=== PATIENT | male | born 1980 | race Caucasian/White ===

== ENCOUNTER 2017-04-15 12:49 | Emergency (ER) | payer SELFPAY ==
[~2017-04-15] VITALS: Ht 180.3 cm; Wt 93.2 kg
[2017-04-15 12:52] VITALS: TEMP 36.4; Ht 180.3 cm; Wt 93.2 kg
[2017-04-15] MEDS ORDERED: SEIZURE MEDICATION PO (13:11)
[2017-04-15] MEDS ORDERED: IBUPROFEN 600 MG TAB PO STA (13:13)
[2017-04-15] MEDS ORDERED: OXYCODONE HCL IR 5 MG TAB (IMMEDIATE RELEASE) PO STA (13:13)
--- NOTE | 2017-04-15 13:25 | DIAGNOSTIC IMAGING REPORT ---
LEFT ANKLE MIN 3 VIEWS ROUTINE CLINICAL HISTORY: left ankle pain COMPARISON: None. DISCUSSION: Evidence for a left ankle fusion. No well-defined acute bony abnormality. Subtalar joint is intact. There is no evidence for soft tissue swelling. IMPRESSION: 1. Operative changes consistent with a prior ankle fusion. 2. No acute bony abnormality. Electronically signed by: Regan Severino M.D. 04/15/2017 1:23 PM Dictated Date/Time: 04/15/2017 1:21 PM
[2017-04-15] MEDS ORDERED: OXYC1TAB3 PO (15:12)
--- NOTE | 2017-04-15 15:13 | EMERGENCY ROOM VISIT NOTE ---
History First contact with patient: 12:59 Chief Complaint: ANKLE PAIN Stated Complaint: HAVE SCREWS IN ANKLE & POPPED SOMETHING & HURT BAD History of Present Illness The patient is a 36 year old male who presents to the Emergency Room via private vehicle with complaints of "have screws and ankle and popped something and hurt bad". The patient states that in 2009, and then in 2011 or he had ankle surgery on the left ankle. This was secondary to trauma. The patient had been doing well up until earlier today when he heard/felt a pop in his left lateral ankle as he was descending a set of stairs. He notes now that the fused ankle is able to medially invert and will make a popping noise when doing so. He also notes that there is a slight indentation/bumps on the left lateral ankle of which were not there previously. He feels as though every time he walks on it the pain increases. He rates the pain as an 8/10. There is also associated numbness/tingling in the left fifth digit of the affected foot. He is tried Tylenol without relief. Review of Systems A complete 6-point Review of Systems was discussed with the patient, with pertinent positives and negatives listed in the History of Present Illness. All remaining Review of Systems questions can be considered negative unless otherwise specified. Past Medical/Surgical History Medical Problems: (1) Kidney stones (2) Tobacco Use Disorder Surgical Problems: (1) No significant past surgical history Family History FH: cancer FH: diabetes mellitus FH: heart disease FH: hypertension FH: kidney disease FH: seizures Social History Smoking Status: Current Every Day Smoker Alcohol Use: none Marital Status: single, in relationship Housing Status: lives with significant other Occupation Status: employed Current/Historical Medications Scheduled [Seizure Medication], 500 MG PO BID Scheduled PRN Oxycodone Ir (Roxicodone Ir), 1-2 TAB PO Q4H PRN for Pain Allergies Coded Allergies: Penicillins (Verified Adverse Reaction, Unknown, N&V, 12/05/15) Physical Exam Vital Signs Date Time Temp Pulse Resp B/P (MAP) Pulse Ox O2 Delivery O2 Flow Rate FiO2 04/15/17 15:37 83 16 139/94 97 Room Air 04/15/17 12:52 36.4 74 16 147/94 99 Room Air Physical Exam VITAL SIGNS - Vital signs and nursing notes were reviewed. Patient is afebrile , hypertensive at 147/94, non-tachycardic and saturating well on room air 99%. GENERAL -36-year-old male appearing his stated age who is in no acute distress. Communicates well with provider and answers questions appropriately. SKIN - Without rashes. The skin overlying the left ankle is unremarkable other than well-healed surgical scars. There is no erythema, edema noted. EXTREMITIES - No clubbing or peripheral cyanosis. No pretibial edema present. He is vascularly intact in the left lower extremity. Excellent pulses. There is near full range of motion of all digits of the left foot other than the fifth digit. The fifth digit motion is slightly decreased. There is also decreased sensory perception to the left fifth digit. There is excellent vascular supply to this region. +5/5 strength noted in UE/LE bilaterally. Medical Decision & Procedures ER Provider Diagnostic Interpretation: [~ rep ct add3]] LEFT ANKLE MIN 3 VIEWS ROUTINE CLINICAL HISTORY: left ankle pain COMPARISON: None. DISCUSSION: Evidence for a left ankle fusion. No well-defined acute bony abnormality. Subtalar joint is intact. There is no evidence for soft tissue swelling. IMPRESSION: 1. Operative changes consistent with a prior ankle fusion. 2. No acute bony abnormality. Electronically signed by: Regan Severino M.D. 04/15/2017 1:23 PM Dictated Date/Time: 04/15/2017 1:21 PM Medications Administered Medications (Trade) Dose Ordered Sig/Jes Route Start Time Stop Time Status Last Admin Dose Admin Oxycodone HCl (Roxicodone Immediate Rel Tab) 5 mg NOW STAT PO 04/15/17 13:13 04/15/17 13:15 DC 04/15/17 13:33 5 MG Ibuprofen (Motrin Tab) 600 mg NOW STAT PO 04/15/17 13:13 04/15/17 13:15 DC 04/15/17 13:32 600 MG Medical Decision Patient was seen and evaluated as above. After obtaining a thorough history and physical examination radiographs were obtained of the left ankle. He was provided with 600 mg of ibuprofen and 5 mg of OxyIR for his pain. He was given ice packs. Radiograph was obtained of the left ankle. This reveals intact hardware. I have clinical concern that there is slight disruption of this, therefore did elect to discuss the case with the on-call orthopedic surgeon who performed the surgery. I spoke with Dr. Richard, an orthopedic surgeon who works in the same practice as a surgeon to perform the surgery. I spoke with him at 3:08 PM. I discussed the case with him thoroughly. He recommended a posterior long splint for this region, and the patient is to call today to schedule follow-up with Dr. Leach. We discussed the patient's slight sensory and motor deficit. The patient was then placed in a posterior leg splint, and for added support I did elect to add a sugar tong splint. This was as the patient seemed to have medial and lateral inversion/eversion laxity. This was with good fit. He is to remain nonweightbearing with crutches. He is to follow -up with the orthopedic surgeon regarding his injury. He is to return here for worsening. He was educated upon worrisome symptoms which to return, had questions prior to discharge, and was discharged home in good condition. He was found hypertensive. He is to follow up regarding this. In the evaluation and treatment of this patient, the following differential diagnoses were considered: Ankle Fracture, Ankle Sprain, Distal Fibula Fracture , Distal Tibia Fracture, Foot Fracture, [place] Fracture. [place] Drug Monitoring Program Search Results: patient reviewed within database, no issues identified Impression Primary Impression: Left ankle pain Departure Information Dispostion Home / Self-Care Condition GOOD Prescriptions Oxycodone Ir (Roxicodone Ir) 5 Mg Tab 1-2 TAB PO Q4H Y for Pain, #24 TAB For Initial Treatment Prov: William Doherty PA-C 04/15/17 Referrals No Doctor, Assigned (PCP) Lonnie Leach,D.O. Patient Instructions My [facility] Additional Instructions You have been treated in the Emergency Department for a left Ankle pain. You have received pain medicine in the emergency department which impairs your ability to operate a vehicle. It is illegal for you to drive after receiving these medicines. You have been prescribed Oxy IR to be used for pain control. This is a narcotic medication. You cannot drive or consume alcohol while on this medicine. This medicine should only be used for pain that cannot be controlled with over-the- counter pain medicines. For pain control, you can use the following [id number] medicines (if >12 yo): - Regular strength (325mg/tab) Tylenol (acetaminophen) 2 tabs every 4-6 hours as needed. Do not exceed 12 tablets in a 24 hour period. Avoid taking more than 3 grams (3000 mg) of Tylenol per day. This includes any other sources of acetaminophen you may take on a regular basis. - Regular strength (200 mg/tab) Advil (ibuprofen) 1-2 tabs every 4-6 hours as needed. Do not exceed a dose of 3200 mg per day. If this is a recent injury (<24 hrs), ice can be applied to the area of pain for the first 3 days to help decrease pain and inflammation. You have been provided the number for an Orthopaedic Surgeon. You should call this number as soon as possible to establish a follow-up visit from today's Emergency Department visit. Keep the ankle brace/splint in place until cleared by Orthopedics. Use the crutches you have been provided to keep ALL weight off of the ankle until weight bearing is tolerable. (Dr. Leach) Return to the Emergency Department if your current symptoms worsen despite treatment course outlined above, or if you develop any of the following symptoms : intractable pain despite aforementioned treatment course or new onset of numbness or tingling of the foot. Please return to the emergency department with any new/concerning symptoms.
[2017-04-15 15:37] VITALS: BP 139/94; PULSE 83; O2SAT 97
== END 2017-04-15 15:37 | disposition home or self-care (01) ==
LOC: C.EDB 12:51 → C.EDD 15:37
DX: M25.572 Pain in left ankle and joints of left foot (principal); Z98.1 Arthrodesis status; F17.210 Nicotine dependence, cigarettes, uncomplicated

== ENCOUNTER 2017-05-25 00:43 | Emergency (ER) | payer OTHER ==
[~2017-05-25] VITALS: Ht 180.3 cm; Wt 93.1 kg
[~2017-05-25 00:43] MED LIST: OXYC1TAB3 PO; SEIZURE MEDICATION PO
[2017-05-25 00:55] VITALS: BP 134/83; TEMP 36.7; Ht 180.3 cm; Wt 93.1 kg
[2017-05-25] MEDS ORDERED: SODIUM CHLORIDE 0.9% 1000ML 1,000 ML IV STA (01:05)
[2017-05-25] MEDS ORDERED: ONDANSETRON INJ 2 MG/ML 2 ML VIAL IV STA (01:05)
[2017-05-25] MEDS ORDERED: LEVETIRACETAM IV 1,000 MG in DEXTROSE 5% 100ML 100 ML IV ONE (01:15)
--- NOTE | 2017-05-25 01:23 | EMERGENCY ROOM VISIT NOTE ---
History Report prepared by Telly: Kalyn Moncada Under the Supervision of: Dr. Heladio Short D.O. 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 He was feeling lightheaded and he had to lean up against the door frame. He was feeling well, but then he woke up on the floor. He is unsure what happened. He has a history of seizures and believes that he might have had one. He was found by his SO lying face down on the ground. He reports nausea, vomiting, neck pain, headache, left eye pain, and left shoulder pain. He denies any drug or alcohol use. He admits to smoking cigarettes. He has not had a seizure in 6 months. He is on Keppra twice a day. He took his medications this morning, but has not his evening dose. He recently moved here from [place] and does not have a neurologist yet. Source of History: patient Onset: SALESPERSON CORSETS Position: other (global) Quality: other (syncope) Timing: other (episodic) Associated Symptoms: + headache, + neck pain, + nausea, + vomiting Note: Pt reports left eye pain, left shoulder pain. Review of Systems See HPI for pertinent positives & negatives. A total of 10 systems reviewed and were otherwise negative. Past Medical & Surgical Medical Problems: (1) Kidney stones (2) Tobacco Use Disorder Surgical Problems: (1) No significant past surgical history Family History FH: cancer FH: diabetes mellitus FH: heart disease FH: hypertension FH: kidney disease FH: seizures Social History Smoking Status: Current Every Day Smoker Alcohol Use: none Marital Status: single, in relationship Housing Status: lives with significant other Occupation Status: employed Current/Historical Medications Scheduled Fluoxetine (Prozac), 60 MG PO DAILY Fluoxetine Hcl (Prozac), 60 MG PO DAILY Levetiracetam (Keppra), 500 MG PO BID Levetiracetam (Keppra), 1 TAB PO BID Allergies Coded Allergies: Penicillins (Verified Adverse Reaction, Unknown, N&V, 05/25/17) Physical Exam Vital Signs Date Time Temp Pulse Resp B/P (MAP) Pulse Ox O2 Delivery O2 Flow Rate FiO2 05/25/17 03:13 58 18 05/25/17 01:27 98 Room Air 05/25/17 01:26 Room Air 05/25/17 01:26 Room Air 05/25/17 01:23 76 05/25/17 01:13 73 18 95 05/25/17 00:55 36.7 73 18 134/83 98 Room Air Physical Exam GENERAL: Patient is awake, alert, very anxious appearing and uncomfortable. GCS of 15. HEAD: There was a contusion to the forehead EYES: The conjunctivae are clear. The pupils are round and reactive. EARS, NOSE, MOUTH AND THROAT: The nose is without any evidence of any deformity. Mucous membranes are moist tongue is midline NECK: Diffuse tenderness to cervical spine, ROM appears intact. RESPIRATORY: Normal respiratory effort is noted there is no evidence of wheezing rhonchi or rales CARDIOVASCULAR: Regular rate and rhythm noted there no murmurs rubs or gallops normal S1 normal S2 GASTROINTESTINAL: The abdomen is soft. Bowel sounds are present in all quadrants. Abdomen is nontender BACK: No midline tenderness or or step-off noted range of motion in flexion extension as well as rotation no signs of muscle spasm noted MUSCULOSKELETAL/EXTREMITIES: There is no evidence of gross deformity full range of motion is noted in the hips and shoulders SKIN: There is no obvious evidence of any rash. There are no petechiae, pallor or cyanosis noted. NEUROLOGIC: Patient is awake alert and oriented x3 strength is symmetric patellar reflexes are 2+ bilaterally Medical Decision & Procedures ER Provider Diagnostic Interpretation: X-ray results as stated below per interpretation by me. Chest X-ray: No infiltrate, no free air, no acute disease. CT the head and facial bones and cervical spine was obtained in the emergency department. The report was reviewed. Preliminary Findings Only See Final Report For Complete Findings CT HEAD: No intracranial hemorrhage, mass effect or calvarial fracture Ventricles are within limits and midline Low attenuation involving portions of the left parietal and temporal lobe may represent sequela of remote insult, correlate with history CT FACIAL: No fracture Globes appear intact without retrobulbar stranding Paranasal sinuses and mastoids are within limits TMJs appear normally located CT C SPINE: No fracture or malalignment C6-7 spondylosis/degenerative change Radiologist: Sagar Mix M.D. Study ready at 01:59 and initial results transmitted at 02:12 Laboratory Results 05/25/17 01:27 Red Blood Count 5.97, Mean Corpuscular Volume 85.9, Mean Corpuscular Hemoglobin 29.8, Mean Corpuscular Hemoglobin Concent 34.7, Mean Platelet Volume 9.7, Neutrophils (%) (Auto) 64.6, Lymphocytes (%) (Auto) 23.4, Monocytes (%) (Auto) 8.7, Eosinophils (%) (Auto) 2.3, Basophils (%) (Auto) 0.8, Neutrophils # (Auto) 5.73, Lymphocytes # (Auto) 2.07, Monocytes # (Auto) 0.77, Eosinophils # (Auto) 0.20, Basophils # (Auto) 0.07 05/25/17 01:27 Test 05/25/17 01:27 White Blood Count 8.86 K/uL (4.8-10.8) Red Blood Count 5.97 M/uL (4.7-6.1) Hemoglobin 17.8 g/dL (14.0-18.0) Hematocrit 51.3 % (42-52) Mean Corpuscular Volume 85.9 fL (80-100) Mean Corpuscular Hemoglobin 29.8 pg (25-34) Mean Corpuscular Hemoglobin Concent 34.7 g/dl (32-36) Platelet Count 243 K/uL (130-400) Mean Platelet Volume 9.7 fL (7.4-10.4) Neutrophils (%) (Auto) 64.6 % Lymphocytes (%) (Auto) 23.4 % Monocytes (%) (Auto) 8.7 % Eosinophils (%) (Auto) 2.3 % Basophils (%) (Auto) 0.8 % Neutrophils # (Auto) 5.73 K/uL (1.4-6.5) Lymphocytes # (Auto) 2.07 K/uL (1.2-3.4) Monocytes # (Auto) 0.77 K/uL (0.11-0.59) Eosinophils # (Auto) 0.20 K/uL (0-0.5) Basophils # (Auto) 0.07 K/uL (0-0.2) RDW Standard Deviation 43.0 fL (36.4-46.3) RDW Coefficient of Variation 13.7 % (11.5-14.5) Immature Granulocyte % (Auto) 0.2 % Immature Granulocyte # (Auto) 0.02 K/uL (0.00-0.02) Prothrombin Time 10.2 SECONDS (9.0-12.0) Prothromb Time International Ratio 1.0 (0.9-1.1) Activated Partial Thromboplast Time 27.1 SECONDS (21.0-31.0) Partial Thromboplastin Ratio 1.0 Anion Gap 9.0 mmol/L (3-11) Est Creatinine Clear Calc Drug Dose 119.0 ml/min Estimated GFR () 111.7 Estimated GFR (Non- 96.4 BUN/Creatinine Ratio 9.4 (10-20) Calcium Level 8.6 mg/dl (8.5-10.1) Phosphorus Level 3.5 mg/dl (2.5-4.9) Magnesium Level 2.2 mg/dl (1.8-2.4) Thyroid Stimulating Hormone (TSH) 4.750 uIu/ml (0.300-4.500) Free Thyroxine 1.05 ng/dl (0.80-1.60) Laboratory results per my review. Medications Administered Medications (Trade) Dose Ordered Sig/Jes Route Start Time Stop Time Status Last Admin Dose Admin Ondansetron HCl (Zofran Inj) 4 mg NOW STAT IV 05/25/17 01:05 05/25/17 01:07 DC 05/25/17 01:33 4 MG Sodium Chloride 1,000 ml @ 999 mls/hr Q1H1M STAT IV 05/25/17 01:05 05/25/17 02:05 DC 05/25/17 01:30 999 MLS/HR Levetiracetam 1000 mg/Dextrose 110 ml @ 440 mls/hr ONE ONCE IV 05/25/17 01:15 05/25/17 01:29 DC 05/25/17 01:32 440 MLS/HR Acetaminophen (Tylenol Tab) 1,000 mg NOW STAT PO 05/25/17 02:32 05/25/17 02:33 DC 05/25/17 02:32 1,000 MG Fluoxetine HCl (Prozac Cap) 60 mg NOW ONCE PO 05/25/17 03:15 05/25/17 03:16 DC 05/25/17 03:15 60 MG ED Course 0103: The patient was evaluated in room B6. A complete history and physical examination were performed. 0105: NSS 1000 ml @ 999 mls/hr IV, Zofran Inj 4 mg IV. 0115: Levetiracetam 1000 mg/Dextrose 110 ml @ 440 mls/hr IV. 0232: Acetaminophen 1000 mg PO. 0315: Prozac Cap 60 mg PO. 0316: Upon reevaluation, the patient is resting comfortably. I discussed the results and treatment plan with him. He verbalized agreement of the treatment plan. He was discharged home. Medical Decision Prior records/ancillary studies reviewed. Patient placed in seizure precautions immediately upon arrival. Nursing notes reviewed. Additional history obtained from SO. The patient's history was concerning for a possible seizure. Differential diagnosis: Etiologies such as infection, hypoglycemia, electrolyte abnormalities, cardiac sources, intracerebral event, trauma, toxicologic, neurologic, as well as others were. Medication Reconciliation: I attest that I have personally reviewed the patient' s current medications list. Patient was found to have a slightly elevated blood pressure due to circumstances. I do not believe that the patient requires hypertension monitoring. The patient is a 36 -year-old male who presented to the emergency department after having a seizure. Patient has a history of seizures ever since a recent head injury. He is currently on a very low dose of Keppra. He states that he is compliant with his medication regimen. The patient recently moved to our area neurologist. I discussed patient's laboratory and was given a dose of IV Keppra in the emergency department. He was reevaluated multiple times. I discussed the patient's condition with him and I also discussed his case with the home health care case manager. We will try to set him up with a follow-up appointment with a neurologist but I did increase his dose 1000 milligrams twice a day as he was encouraged to rest and avoid any strenuous also encouraged to return to the emergency department for any worsening arises otherwise he follow-up with his family Dr. Avitia Primary Impression: Seizure Additional Impressions: Head injury Forehead contusion Scribe Attestation The scribe's documentation has been prepared under my direction and personally reviewed by me in its entirety. I confirm that the note above accurately reflects all work, treatment, procedures, and medical decision making performed by me. Departure Information Dispostion Home / Self-Care Prescriptions Fluoxetine Hcl (PROZAC) 20 Mg Cap 60 MG PO DAILY, #30 CAP Prov: Heladio Short, DO 05/25/17 Levetiracetam (KEPPRA) 1,000 Mg Tab 1 TAB PO BID for 30 Days, #60 TAB Prov: Heladio Short, DO 05/25/17 Referrals No Doctor, Assigned (PCP) Forms HOME CARE DOCUMENTATION FORM, IMPORTANT VISIT INFORMATION Patient Instructions ED Head Injury Closed, ED Seizure Recurrent, [facility] Additional Instructions Continue all medications as prescribed. Do not drive a vehicle or operate any heavy machinery until your cleared by the neurologist. Follow-up with the neurologist this week we will try to schedule your appointment with the home health care case manager. Continue using Motrin and Tylenol as directed for pain. Problem Qualifiers Additional Impressions: Head injury Encounter type: initial encounter Qualified Codes: S09.90XA - Unspecified injury of head, initial encounter Forehead contusion Encounter type: initial encounter Qualified Codes: S00.83XA - Contusion of other part of head, initial encounter
[2017-05-25 01:27] VITALS: O2SAT 98
[2017-05-25 01:39] LABS: BASO % 0.8 %; BASO ABS # 0.07 K/uL (0-0.2); COMPLETE YES; EOS % 2.3 %; HEMATOCRIT 51.3 % (42-52); IG% 0.2 %; LYMPH % 23.4 %; LYMPH ABS # 2.07 K/uL (1.2-3.4); MEAN CELL VOLUME 85.9 fL (80-100); MEAN CORPUSCULAR HEMOGLOBIN 29.8 pg (25-34); MEAN CORPUSCULAR HGB CONC 34.7 g/dl (32-36); MEAN PLATELET VOLUME 9.7 fL (7.4-10.4); MONO % 8.7 %; NEUT % 64.6 %; PLATELET COUNT 243 K/uL (130-400); RED BLOOD COUNT 5.97 M/uL (4.7-6.1); WHITE BLOOD COUNT 8.86 K/uL (4.8-10.8)
[2017-05-25 01:47] LABS: PROTHROMBIN TIME (PATIENT) 10.2 SECONDS (9.0-12.0)
[2017-05-25 01:56] LABS: BUN/CREATININE RATIO 9.4 (10-20); CALCIUM 8.6 mg/dl (8.5-10.1); MAGNESIUM 2.2 mg/dl (1.8-2.4); POTASSIUM 3.5 mmol/L (3.5-5.1)
[2017-05-25 02:06] LABS: PHOSPHORUS 3.5 mg/dl (2.5-4.9); THYROID STIMULATING HORMONE 4.75 uIu/ml (0.300-4.500)
[2017-05-25] MEDS ORDERED: FLUO20CA35 PO (02:28)
[2017-05-25] MEDS ORDERED: LEVE500T13 PO (02:28)
[2017-05-25] MEDS ORDERED: ACETAMINOPHEN 500 MG TAB PO STA (02:32)
[2017-05-25 03:13] VITALS: PULSE 58
[2017-05-25] MEDS ORDERED: FLUOXETINE HCL 20 MG CAP PO ONE (03:15)
[2017-05-25] MEDS ORDERED: KPP/1000 PO (04:17)
[2017-05-25] MEDS ORDERED: FLUO20CA34 PO (04:17)
--- NOTE | 2017-05-25 06:21 | DIAGNOSTIC IMAGING REPORT ---
CHEST ONE VIEW PORTABLE CLINICAL HISTORY: fall trauma COMPARISON STUDY: No previous studies for comparison. FINDINGS: The bones soft tissues and hemidiaphragms are normal. The cardiomediastinal silhouette is normal. The lungs are clear. The pulmonary vasculature is normal. IMPRESSION: Negative chest. The above report was generated using voice recognition software. It may contain grammatical, syntax or spelling errors. Electronically signed by: Regan Severino M.D. 05/25/2017 6:19 AM Dictated Date/Time: 05/25/2017 6:19 AM
--- NOTE | 2017-05-25 06:22 | DIAGNOSTIC IMAGING REPORT ---
FACIAL BONES-MXILLOFAC WITHOUT CT DOSE: HISTORY: Trauma. Seizure. fall TECHNIQUE: Multiaxial CT images of the maxillofacial region were performed and reformatted in the coronal plane without the use of contrast. COMPARISON: None. FINDINGS: The visualized cervical spine, skull base, pterygoid plates, nasal bones, lamina papyracea, orbital floors, mandible, and zygomatic arches are intact. No fractures. The orbits are unremarkable. IMPRESSION: No fractures within the maxillofacial region. The above report was generated using voice recognition software. It may contain grammatical, syntax or spelling errors. Electronically signed by: Regan Severino M.D. 05/25/2017 6:21 AM Dictated Date/Time: 05/25/2017 6:20 AM
--- NOTE | 2017-05-25 06:23 | DIAGNOSTIC IMAGING REPORT ---
CERVICAL SPINE W/O CT DOSE: HISTORY: Trauma fall TECHNIQUE: Multiaxial CT images of the cervical spine were performed and reformatted in the sagittal and coronal plane without the use of contrast. COMPARISON: None. FINDINGS: No fractures. No subluxation. Prevertebral soft tissues and the C1-C2 interval are intact. No pneumothorax. IMPRESSION: No fractures within the cervical spine. Mild degenerative change. The above report was generated using voice recognition software. It may contain grammatical, syntax or spelling errors. Electronically signed by: Regan Severino M.D. 05/25/2017 6:22 AM Dictated Date/Time: 05/25/2017 6:21 AM
--- NOTE | 2017-05-25 06:25 | DIAGNOSTIC IMAGING REPORT ---
HEAD WITHOUT CONTRAST (CT) CT DOSE: 1550.72 mGy.cm HISTORY: Trauma SEIZURE TECHNIQUE: Multiaxial CT images of the head were performed without the use of intravenous contrast. Comparison: None. Findings: The paranasal sinuses and mastoid air cells are clear. The calvarium and skull base are intact. The ventricles and sulci are within normal limits. There is no mass, hematoma, midline shift, or acute infarct. Findings of a low density involving the left parietal region suggesting old infarction. No acute intracranial hemorrhage. 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 No acute intracranial abnormality. The above report was generated using voice recognition software. It may contain grammatical, syntax or spelling errors. Electronically signed by: Regan Severino M.D. 05/25/2017 6:24 AM Dictated Date/Time: 05/25/2017 6:23 AM
== END 2017-05-25 03:43 | disposition home or self-care (01) ==
LOC: C.EDB 00:44
DX: R56.9 Unspecified convulsions (principal); X58.XXXA Exposure to other specified factors, initial encounter; F17.210 Nicotine dependence, cigarettes, uncomplicated; Z87.442 Personal history of urinary calculi; Z80.9 Family history of malignant neoplasm, unspecified; Z83.3 Family history of diabetes mellitus; Z82.49 Family history of ischemic heart disease and other diseases of the circulatory system; Z82.0 Family history of epilepsy and other diseases of the nervous system; Z79.899 Other long term (current) drug therapy; S00.83XA Contusion of other part of head, initial encounter

== ENCOUNTER 2017-06-11 19:52 | Emergency (ER) | payer OTHER ==
[~2017-06-11] VITALS: Ht 180.3 cm; Wt 92.9 kg
[~2017-06-11 19:52] MED LIST changes: +FLUO20CA35 PO; +KPP/1000 PO; +LEVE500T13 PO; -OXYC1TAB3 PO; -SEIZURE MEDICATION PO
[2017-06-11 20:01] VITALS: TEMP 36.9; Ht 180.3 cm; Wt 92.9 kg
[2017-06-11] MEDS ORDERED: SODIUM CHLORIDE 0.9% 1000ML 1,000 ML IV STA (20:12)
[2017-06-11] MEDS ORDERED: ONDANSETRON INJ 2 MG/ML 2 ML VIAL IV STA (20:12)
[2017-06-11] MEDS ORDERED: KPP/1000 PO (20:14)
[2017-06-11] MEDS ORDERED: MAGN200T3 PO (20:14)
[2017-06-11] MEDS ORDERED: RIBO1TAB4 PO (20:14)
[2017-06-11] MEDS ORDERED: ATOM25CA PO (20:14)
[2017-06-11 20:20] LABS: COMPLETE YES
[2017-06-11 20:21] VITALS: O2SAT 96
[2017-06-11 20:28] LABS: URINE APPEARANCE CLEAR (CLEAR); URINE BILIRUBIN NEG (NEG); URINE COLOR DK YELLOW; URINE NITRITE NEG (NEG); URINE SPECIFIC GRAVITY 1.027 (1.000-1.030); UROBILINOGEN NEG (NEG)
[2017-06-11 20:29] LABS: WHITE BLOOD COUNT 9.61 K/uL (4.8-10.8)
[2017-06-11 20:30] LABS: MANUAL MICROSCOPIC REQUIRED? NO; REVIEW REQ? NO
[2017-06-11 20:30] LABS: HEMATOCRIT 55.8 % (42-52); PROTHROMBIN TIME (PATIENT) 10.9 SECONDS (9.0-12.0); RED BLOOD COUNT 6.49 M/uL (4.7-6.1)
[2017-06-11 20:31] LABS: MEAN CORPUSCULAR HEMOGLOBIN 29.6 pg (25-34); MEAN CORPUSCULAR HGB CONC 34.4 g/dl (32-36)
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
[2017-06-11 20:32] LABS: BASO % 0.5 %; EOS % 2.2 %; LYMPH % 24.6 %; MEAN PLATELET VOLUME 10.6 fL (7.4-10.4); MONO % 6.2 %; NEUT % 66.4 %; PLATELET COUNT 261 K/uL (130-400)
[2017-06-11 20:33] LABS: BASO ABS # 0.05 K/uL (0-0.2); IG% 0.1 %; LYMPH ABS # 2.36 K/uL (1.2-3.4)
[2017-06-11 20:35] LABS: BUN/CREATININE RATIO 11.3 (10-20); CREATININE 1.1 mg/dl (0.60-1.40); MAGNESIUM 2.3 mg/dl (1.8-2.4); POTASSIUM 3.9 mmol/L (3.5-5.1)
--- NOTE | 2017-06-11 20:41 | DIAGNOSTIC IMAGING REPORT ---
HEAD WITHOUT CONTRAST (CT) CT DOSE: 537.48 mGy.cm HISTORY: Mental status change SEIZURE TECHNIQUE: Multiaxial CT images of the head were performed without the use of intravenous contrast. A dose lowering technique was utilized adhering to the principles of ALARA. Comparison: 05/25/2017 Findings: The paranasal sinuses and mastoid air cells are clear. Chronic peripheral encephalomalacia left circumflex cerebral hemisphere. This is unchanged. No new or interval process. No acute bony abnormality. Impression: No acute process. No change from the prior exam. The above report was generated using voice recognition software. It may contain grammatical, syntax or spelling errors. Electronically signed by: Regan Severino M.D. 06/11/2017 8:40 PM Dictated Date/Time: 06/11/2017 8:39 PM
--- NOTE | 2017-06-11 20:44 | DIAGNOSTIC IMAGING REPORT ---
CHEST ONE VIEW PORTABLE CLINICAL HISTORY: SEIZURE mental status change COMPARISON STUDY: 05/25/2017 FINDINGS: The bones soft tissues and hemidiaphragms are normal. The cardiomediastinal silhouette is normal. The lungs are clear. The pulmonary vasculature is normal. IMPRESSION: Negative chest. The above report was generated using voice recognition software. It may contain grammatical, syntax or spelling errors. Electronically signed by: Regan Severino M.D. 06/11/2017 8:43 PM Dictated Date/Time: 06/11/2017 8:43 PM
[2017-06-11 20:45] LABS: BENZODIAZEPINE, URINE NEG (NEG); COCAINE,URINE NEG (NEG); PHENCYCLIDINE, URINE NEG (NEG)
[2017-06-11 20:46] LABS: PHOSPHORUS 2.8 mg/dl (2.5-4.9); THYROID STIMULATING HORMONE 3.35 uIu/ml (0.300-4.500)
[2017-06-11] MEDS ORDERED: OXYCODONE/ACETAMINOPHEN 5-325 TAB PO STA (21:30)
[2017-06-11] MEDS ORDERED: OXYCODONE HCL IR 5 MG TAB (IMMEDIATE RELEASE) PO STA (21:31)
[2017-06-11 22:54] VITALS: BP 134/66; PULSE 85; O2SAT 97
== END 2017-06-11 22:54 | disposition home or self-care (01) ==
LOC: EDBD 19:52 → C.EDB 19:53
DX: R56.9 Unspecified convulsions (principal); E86.0 Dehydration; D75.1 Secondary polycythemia; F17.210 Nicotine dependence, cigarettes, uncomplicated; Z82.49 Family history of ischemic heart disease and other diseases of the circulatory system

== ENCOUNTER 2017-08-22 19:55 | Emergency (ER) | payer OTHER ==
[~2017-08-22] VITALS: Ht 180.3 cm; Wt 94.6 kg
[~2017-08-22 19:55] MED LIST changes: +ATOM25CA PO; -LEVE500T13 PO; +MAGN200T3 PO; +RIBO1TAB4 PO
[2017-08-22 20:03] VITALS: TEMP 37; Ht 180.3 cm; Wt 94.6 kg
[2017-08-22] MEDS ORDERED: IBUP-1050 PO (20:20)
[2017-08-22] MEDS ORDERED: KETOROLAC TROMETHAMINE 60 MG/2 ML VIAL IM STA (20:43)
[2017-08-22] MEDS ORDERED: CYCL10TA6 PO (21:00)
[2017-08-22] MEDS ORDERED: PRED20TA PO (21:00)
[2017-08-22] MEDS ORDERED: FLEXERIL HOME PACK 10 MG VIAL PO STA (21:00)
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
[2017-08-22 21:35] VITALS: BP 119/71; PULSE 82; O2SAT 96
== END 2017-08-22 21:35 | disposition home or self-care (01) ==
LOC: C.EDB 19:56 → C.EDD 21:35
DX: S39.012A Strain of muscle, fascia and tendon of lower back, initial encounter (principal); X50.9XXA Other and unspecified overexertion or strenuous movements or postures, initial encounter; F90.9 Attention-deficit hyperactivity disorder, unspecified type; R56.9 Unspecified convulsions; F17.200 Nicotine dependence, unspecified, uncomplicated

== ENCOUNTER 2017-11-11 19:02 | Emergency (ER) | payer OTHER ==
[~2017-11-11] VITALS: Ht 180.3 cm; Wt 100.0 kg
[~2017-11-11 19:02] MED LIST changes: -ATOM25CA PO; -KPP/1000 PO; -MAGN200T3 PO; -RIBO1TAB4 PO
[2017-11-11 19:09] VITALS: BP 147/105; PULSE 86; TEMP 37; O2SAT 98; Ht 180.3 cm; Wt 100.0 kg
[2017-11-11] MEDS ORDERED: ESCI1TAB6 PO (20:00)
[2017-11-11] MEDS ORDERED: MAGN200T3 PO (20:14)
[2017-11-11] MEDS ORDERED: ATOM25CA PO (20:14)
[2017-11-11] MEDS ORDERED: KPP/1000 PO (20:14)
[2017-11-11] MEDS ORDERED: RIBO1TAB4 PO (20:14)
[2017-11-11] MEDS ORDERED: IBUP-1050 PO (20:20)
--- NOTE | 2017-11-11 20:39 | DIAGNOSTIC IMAGING REPORT ---
R HUMERUS MIN 2 VIEWS ROUTINE HISTORY: 36 years-old Male RUE PAIN acute pain of the right upper extremity COMPARISON: None available TECHNIQUE: 3 views of the right humerus FINDINGS: There is no acute fracture, dislocation or significant degenerative changes identified. Soft tissues are unremarkable without opaque foreign body. IMPRESSION: No acute fracture or dislocation. The above report was generated using voice recognition software. It may contain grammatical, syntax or spelling errors. Electronically signed by: Teo Joyce M.D. 11/11/2017 8:38 PM Dictated Date/Time: 11/11/2017 8:37 PM
--- NOTE | 2017-11-11 20:41 | DIAGNOSTIC IMAGING REPORT ---
L-SPINE MIN 4 VIEWS ROUTINE HISTORY: 36 years-old Male LBP acute low back pain without reported trauma COMPARISON: None available TECHNIQUE: 5 views of the lumbar spine FINDINGS: Mild posterior intervertebral disc space narrowing at L5-S1. No spondylolysis or spondylolisthesis. No acute fracture or subluxation. Soft tissues appear unremarkable. IMPRESSION: 1. No acute fracture or subluxation. 2. Mild intravertebral disc space narrowing at L5-S1. The above report was generated using voice recognition software. It may contain grammatical, syntax or spelling errors. Electronically signed by: Teo Joyce M.D. 11/11/2017 8:40 PM Dictated Date/Time: 11/11/2017 8:38 PM
[2017-11-11] MEDS ORDERED: OXYCODONE IR HOME PACK PO ONE (21:00)
[2017-11-11] MEDS ORDERED: OXYC1TAB3 PO (21:03)
--- NOTE | 2017-11-11 21:16 | EMERGENCY ROOM VISIT NOTE ---
History First contact with patient: 19:28 Chief Complaint: FALL Stated Complaint: FELL ON ICE- BACK PAIN AND HURT RT SHOULDER History of Present Illness The patient is a 36 year old male who presents to the Emergency Room with complaints of lower back and right upper extremity pain after slipping and falling on ice at 4 PM this afternoon. The patient reports that he landed on his back, and held his right arm up to keep from hitting his face. The patient complains mostly of lower back pain, denying any pain radiating into his buttocks or down the legs. The patient has a history of lumbar degenerative disc disease. The patient complains of right shoulder and right humeral pain with mild discomfort radiating into the forearm. He denies any pain of the hand , wrist or back. He denies hitting his head, and also denies any neck discomfort. The patient did take Tylenol without any significant relief, rating his discomfort an 8 out of 10. Review of Systems 10 system review was performed and was negative except for pertinent positives and negatives as indicated in history of present illness Past Medical/Surgical History Medical Problems: (1) Attention-Deficit Hyperactivity Disorder, Unspecified Type (2) Kidney stones (3) Leg fracture, left (4) Tobacco Use Disorder Surgical Problems: (1) No significant past surgical history Family History FH: cancer FH: diabetes mellitus FH: heart disease FH: hypertension FH: kidney disease FH: seizures Social History Smoking Status: Current Every Day Smoker Alcohol Use: none Marital Status: single, in relationship Housing Status: lives with significant other Occupation Status: employed Current/Historical Medications Scheduled Atomoxetine (Strattera), 25 MG PO QAM Escitalopram Oxalate (Lexapro), 5 MG PO DAILY Levetiracetam (Keppra), 1,000 MG PO BIDM Magnesium (Magnesium), 200 MG PO QAM Riboflavin (Riboflavin), 400 MG PO QAM Scheduled PRN Ibuprofen (Advil), 600 MG PO Q6H PRN for Pain Oxycodone Ir (Roxicodone Ir), 1-2 TAB PO Q4H PRN for Pain Physical Exam Vital Signs Date Time Temp Pulse Resp B/P (MAP) Pulse Ox O2 Delivery O2 Flow Rate FiO2 11/11/17 19:09 37.0 86 20 147/105 98 Room Air Physical Exam CONSTITUTIONAL: Healthy and well nourished. Alert and oriented X 3 with positive affect. Patient appears in mild discomfort from pain. HEENT: Normocephalic, atraumatic. Pupils equal, round and reactive. No epistaxis, subconjunctival hemorrhage or hemotympanum. NECK: Full active range of motion without discomfort. RESPIRATORY: Clear to auscultation bilaterally with no wheezing, crackles, rhonchi or stridor. CARDIOVASCULAR: Regular rate and rhythm with no murmurs, rubs or gallops. GASTROINTESTINAL: Bowel sounds present in all quadrants. Soft and nontender to palpation. MUSCULOSKELETAL: Examination of the right upper extremity shows generalized tenderness to palpation about the shoulder and proximal humerus region. He has minimal discomfort of the posterior elbow, with worsening discomfort with flexion and extension. Pronation and supination does not cause any discomfort in the forearm. Negative anatomic snuffbox tenderness, and no significant tenderness of the hand or fingers. The patient also has generalized tenderness to palpation of the lower lumbar spine. Negative sitting straight leg raise. Negative logroll. Distal pulses are intact. INTEGUMENTARY: No rash or other significant dermatologic conditions noted. NEUROLOGIC: Upper and lower extremities are sensory intact. Medical Decision & Procedures ER Provider Diagnostic Interpretation: My interpretation of right humerus x-rays does not show any acute fractures or dislocations. My interpretation of lumbar spine x-rays does not show any lordotic reversal, fractures or subluxations. Radiologist reports were also reviewed with concurrence. ED Course Patient history and physical exam were performed. Nurse's notes were reviewed. Vital signs were reviewed, showing a blood pressure 147/105. The patient does not appear in any acute distress on my exam. X-rays of the right humerus and lumbar spine were normal. The patient was encouraged to intermittently apply ice to areas of discomfort. Ibuprofen and Tylenol in alternating fashion for baseline pain relief. The patient was dispensed a home pack and prescription for OxyIR 5 mg. No drinking or driving while taking this medication. The patient was instructed to follow-up with his PCP for further management, including pain management if symptoms are not improving. The patient voiced understanding of all discharge instructions, and rated his discomfort a 7 out of 10 at the time of discharge, at which time he was dispensed his home pack. The patient was encouraged to follow-up with his PCP for blood pressure recheck as well. Medical Decision [place] Drug Monitoring Program Search Results: patient reviewed within database, no issues identified Medication Reconcilliation Current Medication List: was personally reviewed by me Impression Primary Impression: Contusion of right upper extremity Additional Impressions: Lumbar contusion Fall from slipping on ice Elevated blood pressure reading Departure Information Prescriptions Oxycodone Ir (Roxicodone Ir) 5 Mg Tab 1-2 TAB PO Q4H Y for Pain, #10 TAB For Initial Treatment Prov: Roscoe Her PA 11/11/17 Referrals Tricia Vidales M.D. (MEDICAL) (PCP) Patient Instructions My [facility] Problem Qualifiers Primary Impression: Contusion of right upper extremity Encounter type: initial encounter Qualified Codes: S40.021A - Contusion of right upper arm, initial encounter Additional Impressions: Lumbar contusion Encounter type: initial encounter Qualified Codes: S30.0XXA - Contusion of lower back and pelvis, initial encounter Fall from slipping on ice Encounter type: initial encounter Qualified Codes: W00.9XXA - Unspecified fall due to ice and snow, initial encounter
== END 2017-11-11 21:18 | disposition home or self-care (01) ==
LOC: C.EDB 19:04 → C.EDD 21:18
DX: S30.0XXA Contusion of lower back and pelvis, initial encounter (principal); S40.021A Contusion of right upper arm, initial encounter; W00.9XXA Unspecified fall due to ice and snow, initial encounter; R03.0 Elevated blood-pressure reading, without diagnosis of hypertension; F90.9 Attention-deficit hyperactivity disorder, unspecified type; Z87.442 Personal history of urinary calculi; F17.210 Nicotine dependence, cigarettes, uncomplicated; Z80.9 Family history of malignant neoplasm, unspecified; Z83.3 Family history of diabetes mellitus; Z82.49 Family history of ischemic heart disease and other diseases of the circulatory system; Z84.1 Family history of disorders of kidney and ureter; Z82.0 Family history of epilepsy and other diseases of the nervous system; Z79.899 Other long term (current) drug therapy

== ENCOUNTER 2018-03-04 15:36 | Emergency (ER) | payer OTHER ==
[~2018-03-04] VITALS: Ht 180.3 cm; Wt 90.7 kg
[~2018-03-04 15:36] MED LIST changes: +ATOM25CA PO; +ESCI1TAB6 PO; -FLUO20CA35 PO; +IBUP-1050 PO; +KPP/1000 PO; +MAGN200T3 PO; +OXYC1TAB3 PO; +RIBO1TAB4 PO
[2018-03-04 15:38] VITALS: TEMP 36.7; Ht 180.3 cm; Wt 90.7 kg
[2018-03-04] MEDS ORDERED: KPP/1000 PO (16:09)
--- NOTE | 2018-03-04 16:10 | EMERGENCY ROOM VISIT NOTE ---
ED Visit Note First contact with patient: 15:47 CHIEF COMPLAINT: Medication refill HISTORY OF PRESENT ILLNESS: This 37-year-old male patient presents to the emergency department, ambulatory, with his , with requests for a medication refill. The patient states he is from the area, recently moved to [place], and moved back after 3-4 months. He states he is almost out of his prescriptions for seizure medication and chronic pain medication. He states he is on Keppra and hydrocodone. The patient states he moved to [place] for 4 months, however came home. He states he tried calling his PCP, Dr. Vidales, in [place], but was told he could not be seen for 3 months. He states the office told him to come to the emergency department for medication refill, as he would then be able to be seen more quickly. He states he has only 1 pill left of Keppra and is completely out of his hydrocodone. When asked who prescribed his medication for his chronic back pain locally, as PDMP did not reveal any recent hydrocodone prescriptions, the patient states "I do not remember". He states "it may have been in [place] only". The patient denies any recent seizure. He denies any chest pain, dyspnea, headache, dizziness, nausea, vomiting, or other concerning symptoms. REVIEW OF SYSTEMS: A 10 system review of systems was performed with positives and pertinent negatives listed in the history of present illness. All other systems were reviewed and are negative. ALLERGIES: Tramadol, penicillin MEDICATIONS: Keppra, Strattera, Lexapro, clonidine PMH: ADHD, anxiety, chronic pain, seizure disorder SOCIAL HISTORY: The patient lives locally with family. He denies drug, alcohol use. He admits to smoking 1-2 cigarettes per day. PHYSICAL EXAM: VITALS: Vitals are noted on the nurse's note and reviewed by myself. Vital signs stable. GENERAL: This is a 37-year-old white male, in no acute distress, nondiaphoretic , well-developed well-nourished. SKIN: The skin was without rashes, erythema, edema, or bruising. There is no tenting of the skin. Capillary reflex less than 2 seconds. HEAD: Normocephalic atraumatic. EARS: External auditory canals clear, tympanic membranes pearly perkins without erythema or effusion bilaterally. EYES: Pupils equal round and reactive to light and accommodation. Conjunctivae without injection, sclerae without icterus. Extraocular movements intact. NOSE: Patent, turbinates without inflammation or discharge. No sinus tenderness. MOUTH: Mucous membranes moist. Tonsils are not enlarged. Pharynx without erythema or exudate. Uvula midline. Airway patent. Tongue does not deviate. NECK: Supple without nuchal rigidity. No lymphadenopathy. No thyromegaly. Cervical spine is nontender. No JVD. HEART: Regular rate and rhythm without murmurs gallops or rubs. LUNGS: Clear to auscultation bilaterally without wheezes, rales or rhonchi. No dullness to percussion. No retractions or accessory muscle use. MUSCULOSKELETAL: No muscle atrophy, erythema, or edema noted. Full range of motion without joint tenderness in all extremities. No tenderness to palpation. Normal gait. Strength 5/5 throughout. NEURO: Patient was alert and oriented to person place and time. No focal neurological deficits. EMERGENCY DEPARTMENT COURSE: The patient was seen and evaluated as above. I reviewed PDMP and did not note any chronic pain medications filled. The patient 's PCPs office was contacted, and they stated the patient had canceled an appointment he had approximately 4 months ago. They did not have any record of him calling or scheduling a new appointment, and states they do have an availability in 1 week. The watch case polisher was able to schedule the patient to see his PCP for 1 week. I advised the patient that I would provide him with 1 week's worth of Keppra, but would not be refilling his hydrocodone, as he claims this is a chronic pain medication, and there is no record of him getting this medication chronically. The patient verbalized understanding. All questions were answered to patient's satisfaction. Discharge instructions reviewed, patient was discharged home in good condition. I attest that I have personally reviewed the patient's current medication list. Patient was found to have normal blood pressure on screening and does not require follow-up. Differential diagnosis includes medication refill, seizure, chronic pain, drug- seeking behavior, and others DIAGNOSIS: Medication refill, seizure disorder The chart was completed utilizing [employer] voice recognition software. Grammatical errors, random word insertions, pronoun errors, and incomplete sentences are an occasional consequence of this system due to software limitations, ambient noise, and hardware issues. Any formal questions or concerns about the content, text, or information contained within the body of this dictation should be directly addressed to the provider for clarification. Current/Historical Medications Scheduled Atomoxetine (Strattera), 25 MG PO QAM Escitalopram Oxalate (Lexapro), 5 MG PO DAILY Levetiracetam (Keppra), 1,000 MG PO BIDM Levetiracetam (Keppra), 1 TAB PO BID Magnesium (Magnesium), 200 MG PO QAM Riboflavin (Riboflavin), 400 MG PO QAM Scheduled PRN Ibuprofen (Advil), 600 MG PO Q6H PRN for Pain Oxycodone Ir (Roxicodone Ir), 1-2 TAB PO Q4H PRN for Pain Allergies Coded Allergies: Penicillins (Verified Adverse Reaction, Severe, "IMMEDIATELY STARTED TO VOMIT"., 09/17/17) Tramadol (Unverified Adverse Reaction, Severe, STOMACH PAINS/AGITATION, ) Vital Signs Date Time Temp Pulse Resp B/P (MAP) Pulse Ox O2 Delivery O2 Flow Rate FiO2 03/04/18 16:19 82 20 137/83 95 03/04/18 15:38 36.7 74 16 142/91 99 Room Air Departure Information Impression Primary Impression: Medication refill Additional Impression: History of seizure Dispostion Home / Self-Care Condition GOOD Prescriptions Levetiracetam (KEPPRA) 1,000 Mg Tab 1 TAB PO BID for 7 Days, #14 TAB Prov: Vonda Kaufman, ROCKY 03/04/18 Referrals No Doctor, Assigned (PCP) Patient Instructions My [facility] Additional Instructions You were seen and evaluated in the emergency department today for a medication refill. You were given 1 week's worth of your medication. We were able to establish you an appointment on March 11 at 2:[address] Vidales at the [facility] office. As discussed, we will not refill narcotic prescriptions. You will need to discuss this with your PCP/prescriber of these medications. Follow-up as needed with your PCP for future refills. Problem Qualifiers
[2018-03-04 16:19] VITALS: BP 137/83; PULSE 82; O2SAT 95
== END 2018-03-04 16:21 | disposition home or self-care (01) ==
LOC: C.EDB 15:38 → C.EDD 16:21
DX: Z76.0 Encounter for issue of repeat prescription (principal); G40.909 Epilepsy, unspecified, not intractable, without status epilepticus; M54.9 Dorsalgia, unspecified; G89.29 Other chronic pain; Z79.899 Other long term (current) drug therapy; Z88.6 Allergy status to analgesic agent; Z88.0 Allergy status to penicillin